=== PATIENT | male | born 1980 | race American Indian/Alaskan Native ===

== ENCOUNTER 2018-03-16 19:32 | Emergency (ER) | payer OTHER ==
[~2018-03-16] VITALS: Ht 182.9 cm; Wt 124.7 kg
[~2018-03-16 19:32] MED LIST: AUGMENTIN 875-1 EACH PO; COLACE100 MG PO; FEXOFENADINE H180 MG PO; IBUPROFEN800 MG PO; IRBESARTAN300 MG PO; METRONIDAZOLE500 MG PO; MOTRIN IB200 MG PO; NORCO 5-325 TA1 EACH PO; OMEPRAZOLE20 MG PO; PERCOCET 5-3251 EACH PO; PERCOCET 7.5-31 EACH PO; SIMVASTATIN10 MG PO; VITAMIN D35000 UNIT PO; ZOFRAN ODT4 MG SL; ZOFRAN8 MG PO
--- NOTE | 2018-03-17 20:25 | EKG ---
[facility] [address] [facility] [place] [address] Signed Normal sinus rhythm Normal ECG No previous ECGs available Confirmed by ZINA DUNHAM MD ([id number]) on 03/17/2018 8:25:33 PM Electronically Signed By: ZINA DUNHAM MD 03/17/185 PATIENT NAME: ERIKA DUMONT Electrocardiogram DATE OF : 76 PHYSICIAN: ZINA DUNHAM MD REPORT #: [id number] REPORT IS CONFIDENTIAL AND NOT TO BE RELEASED WITHOUT AUTHORIZATION
== END 2018-03-16 22:16 | disposition home or self-care (01) ==
LOC: ED 19:32
DX: S29.012A Strain of muscle and tendon of back wall of thorax, initial encounter (principal); X58.XXXA Exposure to other specified factors, initial encounter
CPT/HCPCS: 71046; 80053; 84484; 85025; 93005; 93010; 96372; 99284; J1885

== ENCOUNTER 2020-08-14 21:15 | Emergency (ER) | payer OTHER ==
[~2020-08-14] VITALS: Ht 182.9 cm; Wt 127.0 kg
[~2020-08-14 21:15] MED LIST changes: +ALLEGRA ALLERG180 MG PO; +HYDROCODON-ACE1 EA11 PO
--- OUTSIDE RECORDS SUMMARY | 2020-08-14 21:18 | XMS ---
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 Aziza has no Care Guidelines for this patient. Sascha VISIT COUNT (12 MO.) 1 [facility] TOTAL 1 NOTE: Visits indicate total known visits. ED/UCC VISIT TRACKING (12 MO.) 08/14/2020 21:16 [facility] [place] TYPE: Emergency COMPLAINT: - MULTIPLE COMPLAINTS INPATIENT VISIT TRACKING (12 MO.) No inpatient visits to display in this time frame [id number]
--- NOTE | 2020-08-15 16:52 | EKG ---
[facility] [address] [facility] [place] [address] Signed Normal sinus rhythm Normal ECG When compared with ECG of 15-JUL-2019 09:59, No significant change was found Confirmed by ZINA DUNHAM MD ([id number]) on 08/15/2020 4:52:01 PM Electronically Signed By: ZINA DUNHAM MD 08/15/20 165 PATIENT NAME: ERIKA DUMONT Electrocardiogram DATE OF : 76 PHYSICIAN: ZINA DUNHAM MD REPORT #: [id number] REPORT IS CONFIDENTIAL AND NOT TO BE RELEASED WITHOUT AUTHORIZATION
== END 2020-08-14 23:45 | disposition home or self-care (01) ==
LOC: ED 21:15
DX: U07.1 COVID-19 (principal); R07.89 Other chest pain; I10 Essential (primary) hypertension; Z88.8 Allergy status to other drugs, medicaments and biological substances; Z88.1 Allergy status to other antibiotic agents; Z79.899 Other long term (current) drug therapy
CPT/HCPCS: 71045; 80053; 81001; 83735; 84484; 85025; 85379; 93005; 93010; 99285-25

== ENCOUNTER 2020-08-15 13:59 | Emergency (ER) | payer OTHER ==
[~2020-08-15] VITALS: Ht 182.9 cm; Wt 127.0 kg
--- OUTSIDE RECORDS SUMMARY | 2020-08-15 14:02 | XMS ---
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 Aziza has no Care Guidelines for this patient. Sas[facility] MO[facility] NOTE: Visits indicate total known visits. ED/C VISIT TRACKING (12 MO.) 08/15/2020 14:[address] [facility] [place] TYPE: Emergency COMPLAINT: - BP PROBLEMS 08/14/2020 21:16 [facility] [place] TYPE: Emergency COMPLAINT: - MULTIPLE COMPLAINTS INPATIENT VISIT TRACKING (12 MO.) No inpatient visits to display in this time frame [id number]
--- NOTE | 2020-08-15 16:53 | EKG ---
[facility] [address] [facility] [place] [address] Signed Normal sinus rhythm Normal ECG Confirmed by ZINA DUNHAM MD ([id number]) on 08/15/2020 4:52:58 PM Electronically Signed By: ZINA DUNHAM MD 08/15/20 1653 PATIENT NAME: ERIKA DUMONT Electrocardiogram DATE OF : 76 PHYSICIAN: ZINA DUNHAM MD REPORT #: [id number] REPORT IS CONFIDENTIAL AND NOT TO BE RELEASED WITHOUT AUTHORIZATION
== END 2020-08-15 17:03 | disposition home or self-care (01) ==
LOC: ED 13:59
DX: U07.1 COVID-19 (principal); R07.89 Other chest pain; I10 Essential (primary) hypertension; Z88.8 Allergy status to other drugs, medicaments and biological substances; Z88.1 Allergy status to other antibiotic agents; Z79.899 Other long term (current) drug therapy
CPT/HCPCS: 71045; 80053; 83735; 84484; 85025; 85379; 85610; 93005; 93010; 99285-25

== ENCOUNTER 2020-10-13 16:43 | Emergency (ER) | payer OTHER ==
[~2020-10-13] VITALS: Ht 182.9 cm; Wt 121.6 kg
--- OUTSIDE RECORDS SUMMARY | 2020-10-13 16:46 | XMS ---
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 Aziza has no Care Guidelines for this patient. Sascha VISIT COUNT (12 MO.) 3 [facility] TOTAL 3 NOTE: Visits indicate total known visits. ED/UCC VISIT TRACKING (12 MO.) 10/13/2020 16:43 [facility] [place] TYPE: Emergency COMPLAINT: - ABDOMINAL PAIN 08/15/2020 14:00 [facility] [place] TYPE: Emergency COMPLAINT: - BP PROBLEMS DIAGNOSES: - Allergy status to other drugs, medicaments and biological substances - Allergy status to other antibiotic agents - Essential (primary) hypertension - Other chest pain - Allergy status to other drugs, medicaments and biological substances - Other [place] [facility] drug therapy - Allergy status to other antibiotic agents - COVID-19 08/14/2020 21:16 [facility] [place] TYPE: Emergency COMPLAINT: - MULTIPLE COMPLAINTS DIAGNOSES: - Chest pain, unspecified - Allergy status to other drugs, medicaments and biological substances - Allergy status to other antibiotic agents - COVID-19 - Other [place] [facility] (current[facility] drug therapy - Essential (primary) hypertension - Other chest pain - Allergy status to other antibiotic agents - COVID-19 - Allergy status to other drugs, medicaments and biological substances INPATIENT VISIT TRACKING (12 MO.) No inpatient visits to display in this time frame [id number]
[2020-10-13] MEDS ORDERED: METOPROLOL TART25 GM PO (17:01)
[2020-10-13] MEDS ORDERED: CARAFATE1 GM PO (19:12)
[2021-04-06] MEDS ORDERED: ALLEGRA ALLERGY60 MG PO (11:34)
== END 2020-10-13 19:43 | disposition home or self-care (01) ==
LOC: ED 16:43
DX: K21.9 Gastro-esophageal reflux disease without esophagitis (principal); I10 Essential (primary) hypertension; Z88.8 Allergy status to other drugs, medicaments and biological substances; Z88.1 Allergy status to other antibiotic agents; Z79.899 Other long term (current) drug therapy
CPT/HCPCS: 80053; 82150; 83690; 85025; 96374; 99284-25; J1885

== ENCOUNTER 2020-12-04 07:35 | Day surgery (SDC) | payer OTHER ==
[~2020-12-04 07:35] MED LIST changes: +CARAFATE1 GM PO; +METOPROLOL TART25 GM PO
[2020-12-04] MEDS ORDERED: VITAMIN D310 MC4 PO (07:53)
--- NOTE | 2020-12-04 08:52 | NUR ---
12/04/20 0852 Gifty Patterson 0846- PT ARRIVES TO PACU AWAKE AND TALKING. PT REPORTS NO PAIN OR NAUSEA. RESP EVEN AND UNLABORED. OXYGEN SAT HIGH 90'S TO 100% ON 2L VIA NC.
--- NOTE | 2020-12-04 14:55 | OR ---
[facility] [address], [place] [address] Signed DATE OF OPERATION: 12/04/2020 SURGEON: Reyna Wright MD PREOPERATIVE DIAGNOSES: 1. Epigastric pain, known history of gastroesophageal reflux. 2. Obesity (improving). POSTOPERATIVE DIAGNOSIS: Hiatal hernia without evidence of esophagitis. PROCEDURE: Esophagogastroduodenoscopy with biopsy. ANESTHESIA: Intravenous sedation, fentanyl 100 mcg and Versed 5 mg. INDICATION: This obese 40-year-old [place] man is well known to have reflux problems and has history of cholecystectomy by me several years ago, which was effective for at least 1-1/2 years. He complains of epigastric pain. He says he is taking a PPI medication, but my medication list shows that actually he is on sucralfate primarily and has been taking Prilosec episodically three capsules daily. He additionally was taking ibuprofen and has been on prednisone. He does not have dysphagia and does not have regurgitation type symptoms, but persistent epigastric pain. He is admitted to undergo upper endoscopy to better characterize the problem at this time. FINDINGS: The esophagus was normal. There was no Cintron's epithelium or inflammation. The hiatal hernia was noted. The stomach was normal. There was no sign of ulcer. The duodenum was normal. CLOtest was negative 15 minutes postprocedure. DESCRIPTION OF PROCEDURE: The patient was brought to the endoscopy suite, given topical lidocaine spray anesthesia and placed in lateral decubitus position. He was given intravenous sedation to the point of slurred speech and nystagmus with full cardiopulmonary monitoring. A bite block was placed. An Olympus video upper endoscope was passed in the hypopharynx. The vocal cords were normal. The scope was advanced in esophagus and was entirely normal throughout its length including the distal portion. Scope was passed to Electronically Signed By: REYNA WRIGHT MD 12/04/20 1455 PATIENT NAME: ERIKA DUMONT OPERATIVE REPORT DATE OF : 76 REPORT #: [id number] PHYSICIAN: REYNA WRIGHT MD PCP: PALOMA JONES REPORT IS CONFIDENTIAL AND NOT TO BE RELEASED WITHOUT AUTHORIZATION [facility] [address], [place] [address] Signed the stomach, which was insufflated with air. There was no evidence of bilious fluid. Antral motility was normal. Rugal folds were normal. Scope was passed through the pylorus into the duodenum, which was normal. Biopsies were taken of the duodenum to assess for celiac disease. The scope was withdrawn. A biopsy was then taken of the antrum for both TORRI and pathologic testing. Retroflexed view was undertaken and with withdrawal of the scope easily traversed the GE junction consistent with hiatal hernia. The scope was straightened withdrawn. Esophageal mucosa thoroughly examined and found to be normal. Biopsies were obtained. The scope was withdrawn and biopsies taken of the midesophagus as well. The scope was removed. The patient was taken to the recovery room in good condition. CONCLUDING DIAGNOSIS: No evidence of ulcer and no esophagitis. The patient does have hiatal hernia. PLAN: I would encourage his continued weight loss efforts. He is taking Prilosec. I would recommend he take 20 mg p.o. b.i.d. instead of three daily. He can continue the Carafate if he finds it to be helpful. We will better characterize whether or not he is continued to take Motrin and prednisone. Would avoid Motrin and prednisone as much as possible on the possibility this may be causing a functional gastritis. He will return to see us in approximately 4-6 weeks. MD ISABELLE Courtney/BESSIE /[id number] cc: DYLAN Cruz Copies: PALOMA JONES ~ Electronically Signed By: REYNA WRIGHT MD 12/04/20 1455 PATIENT NAME: ERIKA DUMONT OPERATIVE REPORT DATE OF : 76 REPORT #: [id number] PHYSICIAN: REYNA WRIGHT MD PCP: PALOMA JONES REPORT IS CONFIDENTIAL AND NOT TO BE RELEASED WITHOUT AUTHORIZATION
--- NOTE | 2020-12-06 12:20 | PATH ---
[facility] [address] [place], [place] [address] Signed SPECIMEN(S): A DUODENAL BIOPSY SPECIMEN(S): B ANTRUM/PYLORUS BIOPSY SPECIMEN(S): C LOWER ESOPHAGEAL BIOPSY SPECIMEN(S): D MIDDLE ESOPHAGEAL BIOPSY SPECIMEN SOURCE: A. DUODENAL BIOPSY B. ANTRUM/PYLORUS BIOPSY C. LOWER ESOPHAGEAL BIOPSY D. MIDDLE ESOPHAGEAL BIOPSY CLINICAL HISTORY: Reflux. MICROSCOPIC DESCRIPTION: Histologic sections of all submitted blocks are examined by light microscopy. These findings, together with the gross examination, support the pathologic diagnosis. FINAL PATHOLOGIC DIAGNOSIS: A. Duodenum, biopsy: - Duodenal mucosa with no histopathologic abnormality. - Negative for increased intraepithelial lymphocytes. - Negative for dysplasia or malignancy. B. Stomach, antrum/pylorus, biopsy: - Antral mucosa with no histopathologic abnormality. - Oxyntic mucosa with changes as seen with proton pump inhibitor (PPI) therapy. - Negative for Helicobacter organisms on HE stain. - Negative for dysplasia or malignancy. C. Esophagus, lower, biopsy: - Squamous mucosa with mild chronic inflammation and reactive epithelial changes. - Negative for intestinal metaplasia, dysplasia, or malignancy. D. Esophagus, middle, biopsy: - Squamous mucosa with no histopathologic abnormality. - Negative for increased intraepithelial eosinophils. - Negative for intestinal metaplasia, dysplasia, or malignancy. NAL:cml:C2NR GROSS DESCRIPTION: Four specimens are received in four containers labeled with "RS". PATIENT NAME: ERIKA DUMONT PATHOLOGY DATE OF : [birth year] REPORT #: [id number] PHYSICIAN: LANNY LOPEZ PCP: PALOMA JONES REPORT IS CONFIDENTIAL AND NOT TO BE RELEASED WITHOUT AUTHORIZATION [facility] [address] [place], [place] [address] Signed A. The specimen, labeled "RS," and designated on the requisition "duodenum biopsy," is received in formalin and consists of two fragments of pink-sanchez tissue (0.5 x 0.2 x 0.2 cm in aggregate). The specimen is submitted entirely in cassette (A1). B. The specimen, labeled "RS," and designated on the requisition "antrum/pylorus biopsy," is received in formalin and consists of two fragments of pink-sanchez tissue (0.5 x 0.3 x 0.2 cm in aggregate). The specimen is submitted entirely in cassette (B1). C. The specimen, labeled "RS," and designated on the requisition "lower esophagus biopsy," is received in formalin and consists of one fragment of white-sanchez tissue (0.3 x 0.3 x 0.1 cm in aggregate). The specimen is submitted entirely in cassette (C1). D. The specimen, labeled "RS," and designated on the requisition "middle esophagus," is received in formalin and consists of one fragment of white-sanchez tissue (0.4 x 0.2 x 0.1 cm). The specimen is submitted entirely in cassette (D1). AC (under the direct supervision of a pathologist) The Gross Description was prepared using a voice recognition system. The report was reviewed for accuracy; however, sound-alike word errors, addition and/or deletions may occur. If there is any question about this report, please contact Client Services. PERFORMING LABORATORY: The technical component was performed by [employer], [address] [place] [id number] (Beauty Culturist: Ladonna Muñoz MD; CLIA# [id number]). Professional interpretation was performed by [employer], [facility], [address] [address] (CLIA# [id number]). Diagnostician: Savannah Freire MD Pathologist Electronically Signed 12/06/2020 Copies: ~ PATIENT NAME: ERIKA DUMONT PATHOLOGY DATE OF : [birth year] REPORT #: [id number] PHYSICIAN: LANNY PATHOLOGY PCP: PALOMA JONES REPORT IS CONFIDENTIAL AND NOT TO BE RELEASED WITHOUT AUTHORIZATION
== END 2020-12-04 09:26 | disposition home or self-care (01) ==
LOC: OPS 07:35 → DS 07:35 → OPS 08:30 → DS 08:30 → OPS 09:26
PROVIDERS: ATTEND Surgery
PROC: 0DB78ZX Excision of Stomach, Pylorus, Via Natural or Artificial Opening Endoscopic, Diagnostic (ICD-10-PCS; 2020-12-04)
PROC: 0DB98ZX Excision of Duodenum, Via Natural or Artificial Opening Endoscopic, Diagnostic (ICD-10-PCS; principal; 2020-12-04 08:30)
DX: K44.9 Diaphragmatic hernia without obstruction or gangrene (principal); E66.9 Obesity, unspecified; I10 Essential (primary) hypertension; K21.9 Gastro-esophageal reflux disease without esophagitis; Z68.34 Body mass index [BMI] 34.0-34.9, adult; Z88.1 Allergy status to other antibiotic agents; Z88.8 Allergy status to other drugs, medicaments and biological substances; Z90.49 Acquired absence of other specified parts of digestive tract
CPT/HCPCS: 99153; G0500; J2250; J3010; J7121

== ENCOUNTER 2021-04-09 07:25 | Day surgery (SDC) | payer OTHER ==
[~2021-04-09] VITALS: Ht 182.9 cm; Wt 113.6 kg
[~2021-04-09 07:25] MED LIST changes: +ALLEGRA ALLERGY60 MG PO; +VITAMIN D310 MC4 PO
--- NOTE | 2021-04-09 08:52 | NUR ---
04/09/21 0852 Maddie Mccray 0847- PT TO PACU IN LL POSITION. EYES CLOSED. RESPONDS TO VOICE. DROWSY. BREATHING EASY AND UNLABORED. SPO2 >95% ON 2. O2 VIA NASAL CANULA. PT DENIES PAIN. PT ENCOURAGED TO PASS GAS.
--- NOTE | 2021-04-11 11:41 | OR ---
[facility] [address] [place], [place] [address] Signed DATE OF OPERATION: 04/09/2021 SURGEON: Reyna Wright MD PREOPERATIVE DIAGNOSES: 1. Family history of colon cancer, brother (age 36). 2. Known diverticulosis. POSTOPERATIVE DIAGNOSES: Diverticulosis. No evidence of polyps or cancer. PROCEDURE: Total colonoscopy to cecum. ANESTHESIA: Intravenous sedation, fentanyl 150 mcg, Versed 9 mg. INDICATION: This 40-year-old [place]ym[place] man is patient of YAAKOV Dodge at [facility] previously . He is known to me from the past having undergone colonoscopy in 2014 showing only diverticulosis, no evidence of polyps. Notably has a brother who of colon cancer at age 36. He is currently symptom free. He is admitted at this time to undergo surveillance colonoscopy, understand the risks of bleeding, infection, perforation, and other unforeseen complications. FINDINGS: The prep was excellent. Complete colonoscopy was undertaken of the cecum without question. Has a scattered diverticula in the left colon and the right colon, but no evidence of polyps, colitis, or cancer. DESCRIPTION OF PROCEDURE: The patient was brought to the endoscopy suite and placed in lateral decubitus position, given intravenous sedation to the point of slurred speech and nystagmus. Digital rectal examination was normal. An Olympus video colonoscope was passed in the rectum and manipulated throughout the colon noting diverticula of the sigmoid and left colon. The scope was ultimately advanced to the cecum without question. The ileocecal valve and appendiceal orifice were normal. The scope was withdrawn from that point and examination throughout showed some diverticula of the right colon and scattered diverticula of the transverse and left Electronically Signed By: REYNA WRIGHT MD 04/11/21 1141 PATIENT NAME: ERIKA DUMONT OPERATIVE REPORT DATE OF : 76 REPORT #: [id number] PHYSICIAN: REYNA WRIGHT MD PCP: GIFTY KITCHEN REPORT IS CONFIDENTIAL AND NOT TO BE RELEASED WITHOUT AUTHORIZATION [facility] [address] [place], [place] [address] Signed colon. There was no sign of stricture. There was no polyps. No sign of cancer or colitis. Retroflexed view was normal as well. The scope was removed. The patient was taken to the recovery room in good condition. CONCLUDING DIAGNOSIS: Diverticulosis, asymptomatic, no evidence of polyps. PLAN: Recommend a repeat colonoscopy in 5 years sooner if clinically indicated. He will return to the ongoing care of Gifty Kitchen at [facility]. MD ISABELLE Courtney/JERAMIEL /[id number] cc: Gifty Kitchen Copies: GIFTY KITCHEN ~ Electronically Signed By: REYNA WRIGHT MD 04/11/21 1141 PATIENT NAME: ERIKA DUMONT OPERATIVE REPORT DATE OF : [birth year] REPORT #: [id number] PHYSICIAN: REYNA WRIGHT MD PCP: GIFTY KITCHEN REPORT IS CONFIDENTIAL AND NOT TO BE RELEASED WITHOUT AUTHORIZATION
== END 2021-04-09 09:42 | disposition home or self-care (01) ==
LOC: DS 07:25 → OPS 07:25 → DS 08:30 → OPS 09:42
PROVIDERS: ATTEND Surgery
PROC: 0DJD8ZZ Inspection of Lower Intestinal Tract, Via Natural or Artificial Opening Endoscopic (ICD-10-PCS; principal; 2021-04-09 08:30)
DX: Z12.11 Encounter for screening for malignant neoplasm of colon (principal); K57.30 Diverticulosis of large intestine without perforation or abscess without bleeding; Z80.0 Family history of malignant neoplasm of digestive organs; K21.9 Gastro-esophageal reflux disease without esophagitis; I10 Essential (primary) hypertension; G89.4 Chronic pain syndrome; E66.9 Obesity, unspecified; Z68.33 Body mass index [BMI] 33.0-33.9, adult; Z88.1 Allergy status to other antibiotic agents; Z88.8 Allergy status to other drugs, medicaments and biological substances; Z86.16 Personal history of COVID-19; Z90.49 Acquired absence of other specified parts of digestive tract
CPT/HCPCS: 99153; G0500; J2250; J3010; J7121

== ENCOUNTER 2022-10-06 21:49 | Emergency (ER) | payer BC, OTHER ==
[~2022-10-06] VITALS: Ht 182.9 cm; Wt 113.4 kg
--- OUTSIDE RECORDS SUMMARY | 2022-10-06 21:54 | XMS ---
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 PHONE: [phone] Aziza has no Care Guidelines for this patient. Care History Medical/Surgical 10/16/2020 [facility] - PATIENT IS [facility] ELIGIBLE, \T\middot;\T\nbsp; PLEASE REFER PATIENT TO [facility] FOR NON EMERGENT MEDICAL NEEDS. \T\middot;\T\nbsp; [facility] CAN SEE PATIENTS SAME DAY FOR APTS IF PATIENT CALLS FIRST THING IN THE MORNING. E.D. VISIT COUNT (12 MO.) [address] [place] [address] TOTAL 1 NOTE: Visits indicate total known visits. ED/UCC VISIT TRACKING (12 MO.) 10/06/2022 21:[address] [facility] [place] TYPE: Emergency COMPLAINT: - TIRED HEADACHE AND PINCHING ARM INPATIENT VISIT TRACKING (12 MO.) No inpatient visits to display in this time frame [id number]
[2022-10-06] MEDS ORDERED: ROSUVASTATIN CAL5 MG PO (22:19)
--- NOTE | 2022-10-08 13:03 | EKG ---
[facility] [address] [facility] [place] [address] Signed Sinus bradycardia with sinus arrhythmia Otherwise normal ECG When compared with ECG of 15-AUG-2020 14:04, No significant change was found Confirmed by ZINA DUNHAM MD ([id number]) on 10/08/2022 1:03:15 PM Electronically Signed By: ZINA DUNHAM MD 10/08/22 1303 PATIENT NAME: ERIKA DUMONT Electrocardiogram DATE OF : 76 PHYSICIAN: ZINA DUNHAM MD REPORT #: [id number] REPORT IS CONFIDENTIAL AND NOT TO BE RELEASED WITHOUT AUTHORIZATION
== END 2022-10-06 23:14 | disposition home or self-care (01) ==
LOC: ED 21:49
DX: R07.89 Other chest pain (principal); I10 Essential (primary) hypertension; Z88.1 Allergy status to other antibiotic agents; Z88.8 Allergy status to other drugs, medicaments and biological substances; Z79.899 Other long term (current) drug therapy
CPT/HCPCS: 36415; 71045; 80053; 84484; 85025; 85379; 93005; 93010; 99285-25

== ENCOUNTER 2025-03-03 01:35 | Emergency (ER) | payer BC, OTHER ==
[~2025-03-03] VITALS: Ht 182.9 cm; Wt 132.4 kg
--- NOTE | ~2025-03-03 | EKG ---
[facility] [address] [facility] [place], [place] [address] Draft EK completed, results pending confirmation PATIENT NAME: ERIKA DUMONT Electrocardiogram DATE OF : 76 PHYSICIAN: PRELIMINARY REPORT #: [id number] REPORT IS CONFIDENTIAL AND NOT TO BE RELEASED WITHOUT AUTHORIZATION
[~2025-03-03 01:35] MED LIST changes: +ROSUVASTATIN CAL5 MG PO
[2025-03-03] MEDS ORDERED: ASPIRIN 81 MG CHEW PO ONE (01:45)
[2025-03-03] MEDS ORDERED: DILTIAZEM ER120 M2 PO (01:45)
[2025-03-03 01:58] LABS: BASOPHILS 0.5 % (0.2-1.2); EOSINOPHILS 0.5 % (0.8-7.0); HEMATOCRIT 45.1 % (40.1-51.0); HEMOGLOBIN 14.7 g/dL (13.7-17.5); LYMPHOCYTES 24.7 % (21.8-53.1); MCH 29.5 PG (25.7-32.2); MCHC 32.6 g/dL (32.3-36.5); MCV 90.6 fL (79.0-92.2); NEUTROPHILS 67.9 % (34.0-67.9); PLATELET COUNT 270 K/uL (163-337); RBC 4.98 M/uL (4.63-6.08)
[2025-03-03 02:16] LABS: ALBUMIN 3.9 g/dL (3.4-5.0); ALBUMIN/GLOBULIN RATIO 1.18 (1.1-2.4); ALKALINE PHOSPHATASE 148 U/L (46-116); ALT (SGPT) 68 U/L (14-59); AST (SGOT) 36 U/L (15-37); BILIRUBIN, TOTAL 0.4 mg/dL (0.2-1.0); BUN/CREATININE RATIO 16.66 (6.0-28.6); CALCIUM 9.3 mg/dL (8.5-10.1); CARBON DIOXIDE 29 mmol/L (21-32); CHLORIDE 106 mmol/L (98-107); CREATININE, SERUM 0.96 mg/dL (0.70-1.30); GLOMERULAR FILTRATION RATE,EST 99 mL/min (>60); MAGNESIUM 2.2 mg/dL (1.8-2.4); PROTEIN, TOTAL 7.2 g/dL (6.4-8.2); UREA NITROGEN 16 mg/dL (7-18)
[2025-03-03 03:25] VITALS: BP 140/79
== END 2025-03-03 03:26 | disposition home or self-care (01) ==
LOC: ED 01:35
PROVIDERS: Family Medicine
DX: I10 Essential (primary) hypertension (principal); R07.89 Other chest pain; Z79.899 Other long term (current) drug therapy; Z88.1 Allergy status to other antibiotic agents; Z88.8 Allergy status to other drugs, medicaments and biological substances
CPT/HCPCS: 36415; 71045; 80053; 83735; 84484; 85025; 93005; 93010; 99285-25; A9270